=== PATIENT | female | born 2005 | race Two or more races ===

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

== ENCOUNTER 2023-01-06 03:00 | Emergency (ER) | payer OTHER, SELFPAY ==
[2023-01-06 03:16] VITALS: BP 105/61; PULSE 66; RESP 16; TEMP 36.6; O2SAT 99; BMI 22.3
--- OUTSIDE RECORDS SUMMARY | 2023-01-06 05:01 | XMS_ITS | Continuity of Care Document ---
Author Name Unknown Organization [facility] Address [address] [place] [id number] Care Team Providers Care Padded Products Finisher Name Role Phone Not on Staff, PCP Primary Care Physician Unavail able Encounter [facility] Date(s): 07/31/22 - 07/31/[address] [id number]- Encounter Diagnosis Abdominal pain(Final) - 07/31/22 Discharge Disposition: A-D/C Home Attending Physician: Mehnaz Whyte MD Admitting Physician: Mehnaz Whyte MD Referring Physician: Not on Staff, Referring MD Allergies, Adverse Reactions, Alerts No Known Allergies Medications ibuprofen 400 mg oral tablet 400 mg, 1, tablet, By Mouth, Every 6 hours, PRN, for 30 days, not to exceed 3200 mg/day with food or milk, # 120 tablet, Refills 0, Tot. Refills 0, Acute 08/30/22 17:15:00 EDT, as needed for menstrual pain, 07/31/22 17:15:00 EDT, Route to Pharmacy [facility]... Start Date: 07/31/22 Stop Date: 08/30/22 Status: Ordered ibuprofen 600 mg oral tablet 600 mg, 1, tablet, By Mouth, Every 6 hours, PRN, # 90 tablet, Refills 0, Tot. Refills 0, Maintenance, as needed for menstrual pain, 07/31/22 16:55:00 EDT, Route to Pharmacy Electronically, [facility], Partial fill upon patient request if... Start Date: 07/31/22 Status: Ordered Midol Maximum Strength Menstrual 500 mg-60 mg-15 mg oral tablet 1 tablet, By Mouth, Every 6 hours, PRN for menstrual pain, for 30 days, not to exceed 8 doses/day Use for monthly periods. Do not use with other products that contain tylenol or acetaminophen., # 120tablet, 0 Refills, Acute 08/30/22 17:15:00 EDT,... Start Date: 07/31/22 Stop Date: 08/30/22 Status: Ordered Vital Signs Most recent to oldest [Reference Range]: 1 2 3 Oxygen Saturation [94-100 %] 99 % (07/31/22 5:04 PM) 100 % (07/31/22 3:22 PM) 100 % (07/31/22 1:38 PM) Pulse Rate [55-90 bpm] 68 bpm (07/31/22 5:04 PM) 76 bpm (07/31/22 3:22 PM) 63 bpm (07/31/22 1:38 PM) Blood Pressure [90-138/55-84 mm Hg] 102/53mm Hg (07/31/22 5:57 PM) 93/45mm Hg (07/31/22 5:04 PM) 106/67mm Hg (07/31/22 3:22 PM) Respiratory Rate [16-30 br/min] 16 br/min (07/31/22 5:04 PM) 19 br/min (07/31/22 1:38 PM) 18 br/min (07/31/22 10:42 AM) Temperature [96.8-100.4 DegF] 97.6 DegF (07/31/22 5:04 PM) 97.7 DegF (07/31/22 3:22 PM) 97.9 DegF (07/31/22 8:01 AM) Mode of Delivery (Oxygen) Room air (07/31/22 5:04 PM) Room air (07/31/22 3:22 PM) Room air (07/31/22 1:38 PM) Blood pressure sites Arm, right (07/31/22 5:04 PM) Arm, right (07/31/22 3:22 PM) Arm, right (07/31/22 1:38 PM) Temperature Route Oral (07/31/22 5:04 PM) Oral (07/31/22 3:22 PM) Oral (07/31/22 8:01 AM) Note * Lavell Caicedo MD: PERFORM Event Display: Patient Education Leaflets Authored Date: [id number] Abdominal Pain, Unknown Cause (Adult) ?? [id number] ? (?) ? (?) ?. ?. ?. ?. ?. ?.?. ?. ?. ?. ?. ?. ?. ?. ?. ?. ?. ?. ?. ?. ?. ?. ?. ?. ?. ?. ?. ?. ?. ? . ?. ?. ?. ?. ?. ?. ?. ?. ?. ?. ? (?). ?. ?. ?. ?. ? 911 ? 911 ?: ?: ? 3 ? 100.4 ? (38 ?) ? (?) ? (?) ? (?) ?: ? Last Reviewed Date: 2021 ?? [id number] ? [employer] ?. ?. ?. ?? Patient Care team information Care Team Personnel Name: Not on Staff, PCP Position: [facility] Physician (General Medicine) Member Role: PCP Name: Laura Alex Position: [facility] ED TA EMY Name: Rowena Mora LPN Position: [facility] ED RN W/OE and Tasks Member Role: Patient Care Provider Name: Lavell Caicedo MD Position: [facility] Resident Member Role: ED Resident Address: Address: [address] [place] [address] Name: Mehnaz Whyte MD Position: [facility] Resident Member Role: Admitting Physician Address: Address: [address] [place] [address]
--- OUTSIDE RECORDS SUMMARY | 2023-01-06 05:01 | XMS_ITS | Continuity of Care Document ---
Author Name Unknown Organization [facility] ter Address [address] [place] [id number]- Care Team Providers Care Viscose Department Worker Name Role Phone Not on Staff, PCP Primary Care Physician Unavail able Encounter [facility] Date(s): 10/16/22 - 10/16/[address] [address]- Discharge Disposition: A-D/C Home Attending Physician: Piyush Saleh MD Admitting Physician: Piyush Saleh MD Referring Physician: Not on Staff, Referring MD Allergies, Adverse Reactions, Alerts No Known Allergies Medications ibuprofen 600 mg oral tablet 600 mg, 1, tablet, By Mouth, Every 6 hours, PRN, # 90 tablet, Refills 0, Tot. Refills 0, Maintenance, as needed for menstrual pain, 07/31/22 16:55:00 EDT, Route to Pharmacy Electronically, [facility] Report 3, Partial fill upon patient request if... Start Date: 07/31/22 Status: Ordered Results Radiology Reports * Exam Date Time Procedure Performing Provider Status 10/16/22 1:57 PM Chest 2 Views Frontal and Lat Grecia Sherman; Dea (Verified) Notes: (Chest 2 Views Frontal and Lat) Reason For Exam: Shortness of Breath RESULT: Chest 2 Views Frontal and Lat Chest 2 Views Frontal and Lat Hx of Present Illness: via stratus pt feeling dizzy and cohen x 2 days : color good gait steady; Reason: Shortness of Breath; Clinical Question(s): CHF COMPARISON: None FINDINGS: LINES AND TUBES: None. LUNGS AND PLEURA: The lungs are clear. No pleural effusion. No pneumothorax. HEART, MEDIASTINUM AND BEHZAD: Normal. BONES AND SOFT TISSUES: Normal. IMPRESSION: No definite acute cardiopulmonary disease is seen. WSN: [id number] Ordering Physician: Piyush Saleh Dictated By: Ingrid CLEVELAND, Lamin Palma Dictated Date/Time: 10/16/22 2:00 pm Reviewed By: Lamin Quintero MD, V Signed By: Lamin Quintero MD, V Signed Date/Time: 10/16/22 2:00 pm Transcribed By: ANNE MARIE Transcribed Date/Time: 10/16/22 2:00 pm Vital Signs Most recent to oldest [Reference Range]: 1 2 3 Oxygen Saturation [94-100 %] 100 % (10/16/22:23 PM) 100 % (10/16/22 4:05 PM) 97 % (10/16/22 12:33 PM) Pulse Rate [55-90 bpm] 68 bpm (10/16/22 5:23 PM) 67 bpm (10/16/22 4:05 PM) 72 bpm (10/16/22 12:33 PM) Blood Pressure [90-138/55-84 mm Hg] 112/70mm Hg (10/16/22 5:23 PM) 111/68mm Hg (10/16/22 4:05 PM) 94/55mm Hg (10/16/22 12:33 PM) Respiratory Rate [16-30 br/min] 18 br/min (10/16/22 5:23 PM) 18 br/min (10/16/22 4:05 PM) 16 br/min (10/16/22 12:33 PM) Temperature [96.8-100.4 DegF] 98.0 DegF (10/16/22 12:33 PM) Mode of Delivery (Oxygen) Room air (10/16/22 5:23 PM) Room air (10/16/22 4:05 PM) Room air (10/16/22 12:33 PM) Blood pressure sites Arm, right (10/16/22 5:23 PM) Arm, left (10/16/22 4:05 PM) Arm, left (10/16/22 12:33 PM) Temperature Route Oral (10/16/22 12:33 PM) EKG study * Event Display: ECG 12-Lead Authored Date: Please click on pdf link to open report * Event Display: ECG 12-Lead Authored Date: Ventricular Rate: 67 BPM Atrial Rate: 67 BPM P-R Interval: 128 ms QRS Duration: 74 ms Q-T Interval: 370 ms QTC Calculation(Bazett): 390 ms P [place]: 61 degrees R [place]: 79 degrees T [place]: 34 degrees Normal sinus rhythm Normal ECG No previous ECGs available Confirmed by RACHELLE PARK MD ([id number]) on 10/16/2022 7:13:08 PM [place]: RACHELLE PARK MD Note * Daria Javier NP: PERFORM Event Display: Patient Education Leaflets Authored Date: [id number] [facility] - If you need a Doctor or Clinic ?? 34 If You Need a Doctor or Clinic ?? Call [facility] PCP Assignment Line to help you find a doctor:?? [phone] ?? Clinics in [place], [place] For a full list of clinics:? [email or web address] ?? [facility]? [address] [phone] [facility] Internal medicine Clinic?[address]?[phone] [place] [address]?[address][phone] [facility]?[address][phone] [facility]?[address] [phone] [facility]?[address][phone] [facility]?[address][phone] [facility]?[address] [phone] [facility]? [address][phone] [facility] social director?[address][phone] [facility]?[address][phone] [facility]?[address][phone] [facility]?[address][phone] [facility]? [address][phone] [facility]?[address][phone] ? * Yaya FRANKS, Daria: PERFORM Event Display: Patient Education Leaflets Authored Date: [id number] Fainting, Uncertain Cause ?? [id number] ? (Fainting) ? (Syncope) ?. ?. ?. ? (Near-fainting) ?. ?: ? (? (Nausea)) ?. ?: ? (Arrhythmia) ? (Seizure) ? (Stroke) ?. ?. ?. ?. ?: ?. ?. ?24 ?. ?. ?. ?. ?. ?. ?. ?: ?: ?. ? (Seizure) ? (?) ?: ? Last Reviewed Date: 2018 ?? [id number] ? [facility] ?. ?. ?. ?? Patient Care team information Care Team Personnel Name: Not on Staff, PCP Position: [facility] Physician (General Medicine) Member Role: PCP Name: Daria Javier NP Position: [facility] Associate Professional Member Role: ED Physician Hoop Rolls Operator Address: Address: [address] [place] [address] Name: Piyush Saleh MD Position: [facility] ED Medicine MD Member Role: Admitting Physician Address: Address: [address] [place] [address] Name: Sheila Navas Position: [facility] ED RN W/OE and Tasks Member Role: Patient Care Provider
[2023-01-06 05:13] LABS: Basophils Percent Auto 0.5 % (0-2); Eosinophils Absolute Auto 0.1 X10*3/uL (0.0-0.4); Eosinophils Percent Auto 1.2 % (0-4); Hemoglobin 13.8 g/dl (12.0-16.0); Imm Gran Abs Auto 0.03 X10*3/uL (0.00-0.03); Imm Gran Pct Auto 0.4 % (0.0-0.4); Lymphocytes Absolute Auto 2.5 X10*3/uL (1.2-4.9); Lymphocytes Percent Auto 29.9 % (20-40); MANUAL DIFF FLAG NO; Mean Corpuscular HGB Conc 34.5 g/dl (31.0-35.0); Mean Corpuscular Hemoglobin 30.5 pg (27.0-33.0); Mean Corpuscular Volume 88.5 fL (80.0-98.0); Mean Platelet Volume 8.9 fL (9.4-12.3); Monocytes Absolute Auto 0.6 X10*3/uL (0.1-1.2); Monocytes Percent Auto 6.9 % (2-11); Neutrophils Absolute Auto 5.1 x10*3/uL (2.0-8.3); Neutrophils Percent Auto 61.1 % (45-73); Platelet Count 237 X10*3/uL (160-400); Red Blood Count 4.52 X10*6/uL (4.20-5.50); Red Cell Distribution Width 11.8 % (11.0-16.0); White Blood Count 8.4 X10*3/uL (4.8-10.8)
[2023-01-06 05:14] LABS: Appearance Urine Clear; Color Urine Yellow; Glucose Urine UA Negative (Negative); Leukocyte Esterase Urine Negative (Negative); Nitrite Urine Negative (Negative); Specific Gravity - Urine 1.015 (1.005-1.025); Urine Blood Negative (Negative); Urine Ketones Negative (Negative); Urine Protein Negative (Neg-Trace)
[2023-01-06 05:28] LABS: Alanine Aminotransferase 12 U/L (0-31); Albumin Level 4.5 g/dL (3.5-5.0); Alkaline Phosphatase 47 U/L (39-117); Anion Gap 15 (12-20); Aspartate Amino Transferase 18 U/L (5-31); Bilirubin Total 1.3 mg/dL (0.0-1.0); Blood Urea Nitrogen 13 mg/dL (9-16); Calcium 9.7 mg/dL (8.4-10.2); Carbon Dioxide 23 mmol/L (22-29); Chloride 107 mmol/L (96-108); Creatinine Clr Calc Pharmacy 97.2; Estimated Glomerular Filt Rate > 60; Glucose Random 92 mg/dL (60-115); Lipase 13 U/L (8-78); Potassium 3.7 mmol/L (3.3-5.1); Sodium 141 mmol/L (135-145); Total Protein 7.4 g/dL (6.5-8.0)
--- NOTE | 2023-01-06 06:59 | ED.ABDPAIN ---
HPI - Abdominal Pain General Chief Complaint: Abdominal Pain Stated Complaint: stomach pain Time Seen by Provider: 01/06/23 06:43 Source: patient and RN notes reviewed Mode of arrival: ambulatory Limitations: no limitations History of Present Illness HPI narrative: This is a 18-year-old female, with no known past medical history, presenting to the emergency department for evaluation of stomach pain since yesterday. Patient reports that she had diffuse abdominal pain since 02/13 yesterday afternoon. She states that the pain has been constant however wax and wanes in severity. She states that she had a bowel movement 2 hours and states that her stomach pain has since resolved. She denies any fevers, chills, nausea, vomiting, urinary symptoms, abnormal vaginal discharge or vaginal bleeding. She is not sexually active. No other complaints or concerns at this time. MD elicited complaint: abdominal pain Pertinent past history: constipation Related Data Previous Rx's Medication Instructions Recorded ibuprofen 400 mg tablet 400 mg PO TID PRN fever or pain 12/01/22 #30 tabs Allergies Allergy/AdvReac Type Severity Reaction Status Date / Time No Known Allergies Allergy Verified 11/04/22 03:47 Review of Systems Review of Systems Yes all other systems are reviewed and are negative Constitutional: Reports as per HPI [facility] Past Medical History Attestation statement: The following information was validated with the patient. Social History Social History Alcohol intake: never Smoked in Last 30 Days: No Use of substances other than those prescribed or required for medical reasons: No Advance Directives: No Advance Directives Information Provided: No Physical Exam ED Vital Signs: Vital Signs - 24 hr 01/06/23 03:16 Temperature 97.8 F Pulse Rate 66 Respiratory Rate 16 Blood Pressure 105/61 Pulse Oximetry 99 Oxygen Delivery Method Room Air BMI result Body Mass Index 22.3 Const General: cooperative, comfortable and no acute distress Orientation/consciousness: patient oriented x3 Limitations: no limitations HENMT Head: Yes normal to inspection, Yes normocephalic and Yes atraumatic Ears: hearing grossly normal bilaterally General nose exam: Normal external nose present Face and sinus: Yes normal facial exam Mouth: Normal oral and palatal mucosa present, oropharynx normal and moist mucous membranes Throat: Yes posterior oropharynx normal Eyes General: appearance normal, both eyes and all related structures Eyelids: Yes eyelids normal Conjunctivae: conjunctivae normal Sclerae: sclerae normal Pupils: Equal, round and reactive pupils present EOM: EOMs intact bilaterally Neck Neck: Yes normal visual inspection, Yes full ROM and Yes no lymphadenopathy Lymphatic: no lymphadenopathy noted Chest Chest palpation & inspection: normal inspection of the chest Resp Effort & Inspection: normal respiratory effort and able to speak in complete sentences Auscultation: clear to auscultation bilaterally, no crackles, no rales, no rhonchi and no wheezes Cardio Rate: regular rate Rhythm: regular rhythm Heart sounds: S1 normal heart sound present and S2 normal heart sound present GI Other: Abdomen is soft, nontender, nondistended. Normoactive bowel sounds present in all 4 quadrants. Inspection: Yes normal to inspection Skin General skin exam: no rashes or lesions noted Trauma: no lacerations or abrasions Wounds: no wounds Neuro General: patient oriented x3 and moves all extremities Cranial nerves: Yes Equal, round and reactive pupils present Extrem General: Yes normal to inspection Right upper extremity: normal to inspection Left upper extremity: normal to inspection Right lower extremity: normal to inspection Left lower extremity: normal to inspection Medical Decision Making Medical Decision Making [facility] Narrative: This is a 18-year-old female, with no known past medical history, presenting to the emergency department with complaints of abdominal pain since yesterday. Differential diagnoses include appendicitis, gastroenteritis, gastritis, bowel obstruction, constipation Upon physical examination, patient states that her symptoms have completely resolved after having a bowel movement emergency department and she is feeling much better. She has had no fevers, chills, nausea or vomiting. No urinary symptoms. No normal vaginal discharge or bleeding. Labs were obtained, no leukocytosis, stable H&H, chemistry within normal limits. Total bilirubin mildly elevated at 1.3 however has had mildly elevated bilirubin in the past. Abdomen is soft and not tender on examination. Symptoms likely due to constipation, discussed this with patient. Answered all questions. Patient stable for discharge, given return precautions. Differential Diagnosis Differential Diagnoses: The differential diagnosis associated with the presentation includes See above Lab Data [facility] Lab Attestation statement: I reviewed the patient's lab results. See above 01/06/23 05:07 01/06/23 05:07 Labs: Lab Results 01/06/23 Range/Units 05:07 WBC 8.4 (4.8-10.8) X10*3/uL RBC 4.52 (4.20-5.50) X10*6/uL Hgb 13.8 (12.0-16.0) g/dl Hct 40.0 (37.0-47.0) % MCV 88.5 (80.0-98.0) fL MCH 30.5 (27.0-33.0) pg MCHC 34.5 (31.0-35.0) g/dl RDW 11.8 (11.0-16.0) % Plt Count 237 (160-400) X10*3/uL MPV 8.9 L (9.4-12.3) fL Immature Gran % (Auto) 0.4 (0.0-0.4) % Neut % (Auto) 61.1 (45-73) % Lymph % (Auto) 29.9 (20-40) % Garrett % (Auto) 6.9 (2-11) % Eos % (Auto) 1.2 (0-4) % Baso % (Auto) 0.5 (0-2) % Lymph # (Auto) 2.5 (1.2-4.9) X10*3/uL Garrett # (Auto) 0.6 (0.1-1.2) X10*3/uL Eos # (Auto) 0.1 (0.0-0.4) X10*3/uL Baso # (Auto) 0.0 (0.0-0.2) X10*3/uL Abs Immat Gran (auto) 0.03 (0.00-0.03) X10*3/uL Absolute Neuts (auto) 5.1 (2.0-8.3) x10*3/uL Absolute Nucleated RBC 0.000 (0.0-0.012) X10*3/uL Nucleated RBC % (auto) 0.0 (0.0-0.2) /100WBC Sodium 141 (135-145) mmol/L Potassium 3.7 (3.3-5.1) mmol/L Chloride 107 (96-108) mmol/L Carbon Dioxide 23 (22-29) mmol/L Anion Gap 15 (12-20) BUN 13 (9-16) mg/dL Creatinine 0.73 (0.5-1.4) mg/dL Estim Creat Clear Calc 97.2 Estimated GFR > 60 Random Glucose 92 (60-115) mg/dL Calcium 9.7 (8.4-10.2) mg/dL Total Bilirubin 1.3 H (0.0-1.0) mg/dL AST 18 (5-31) U/L ALT 12 (0-31) U/L Alkaline Phosphatase 47 (39-117) U/L Total Protein 7.4 (6.5-8.0) g/dL Albumin 4.5 (3.5-5.0) g/dL Lipase 13 (8-78) U/L Urine Color Yellow Urine Appearance Clear Urine pH 6.0 (5.0-9.0) Ur Specific [place] 1.015 (1.005-1.025) Urine Protein Negative (Neg-Trace) mg/dL Urine Glucose (UA) Negative (Negative) mg/dL Urine Ketones Negative (Negative) mg/dL Urine Blood Negative (Negative) Urine Nitrite Negative (Negative) Ur Leukocyte Esterase Negative (Negative) Discharge Plan Discharge Clinical Impression: Abdominal pain Qualifiers: Abdominal location: generalized Qualified Code(s): R10.84 - Generalized abdominal pain Patient Disposition: Home, Self-Care Instructions: Abdominal Pain (ED) Additional Instructions: You presented to the emergency department today for abdominal pain which resolved after having a bowel movement. It is common to get abdominal pain prior to having a bowel movement or if your constipated and this is likely what had happened. Your labs and urine sample testing were reassuring. Please rest, drink plenty of fluids and get plenty of rest. If any new or worsening symptoms occur including but not limited to fevers, vomiting, or worsening abdominal pain rule please return for re-evaluation. Follow-up with your primary care physician. Prescriptions: No Action ibuprofen 400 mg tablet 400 mg PO TID PRN (Reason: fever or pain) Qty: 30 0RF Stand Alone Forms: Work/School Release
== END 2023-01-06 08:01 | disposition home or self-care (01) ==
PROVIDERS: Emergency Provider Emergency Medicine
DX: R10.84 Generalized abdominal pain (principal); K59.00 Constipation, unspecified; Z79.899 Other long term (current) drug therapy
CPT/HCPCS: 36415; 80053; 81003; 83690; 85025; 99283; 99284

== ENCOUNTER 2023-03-09 03:27 | Emergency (ER) | payer SELFPAY ==
--- NOTE | 2023-03-09 03:29 | ECG_ITS ---
Test Reason : Chest Pain Blood Pressure : / mmHG Vent. Rate : 057 BPM Atrial Rate : 057 BPM P-R Int : 142 ms QRS Dur : 076 ms QT Int : 380 ms P-R-T Axes : 052 064 036 degrees QTc Int : 369 ms Sinus bradycardia Otherwise normal ECG When compared with ECG of 01-DEC-2022 00:23, No significant change was found Referred By: Mitch Adames Electronically Signed By:TARAH WRIGHT MD
--- NOTE | 2023-03-09 03:36 | ED.CHESTPAIN ---
HPI - Chest Pain General Chief Complaint: Chest Pain Stated Complaint: chest pain Time Seen by Provider: 03/09/23 03:36 Source: patient Mode of arrival: EMS Limitations: no limitations History of Present Illness HPI narrative: Patient history of anxiety was watching TV had a conflict with her mother started having palpitation with sharp pain started just prior to arrival patient has been here multiple times for similar situations no known family cardiac history no shortness of breath no history of sudden cardiac Related Data Previous Rx's Medication Instructions Recorded ibuprofen 400 mg tablet 400 mg PO TID PRN fever or pain 12/01/22 #30 tabs hydroxyzine HCl 25 mg tablet 25 mg PO BID PRN anxiety #30 tabs 03/09/23 Allergies Allergy/AdvReac Type Severity Reaction Status Date / Time No Known Allergies Allergy Verified 03/09/23 03:51 Review of Systems Review of Systems: Yes all other systems are reviewed and are negative [facility] Social History Social History Alcohol intake: never Advance Directives: No Advance Directives Information Provided: No Physical Exam Vital Signs: Vital Signs: Last Vital Signs Temp 98.1 F 03/09/23 04:04 Pulse 56 03/09/23 04:04 Resp 14 03/09/23 04:04 BP 92/53 L 03/09/23 04:04 Pulse Ox 99 03/09/23 04:04 O2 Del Method Room Air 03/09/23 04:04 BMI result Body Mass Index 17.7 Appearance: Alert. Oriented X3. No acute distress. Anxious ENT: Pharynx normal. Oral Mucosa moist Neck: Normal inspection. Neck supple. CVS: Normal heart rate and rhythm. Pulses normal. No murmur rub or gallop Respiratory: No respiratory distress. Equal air entry bilateral, Abdomen: Soft and nontender. Bowel sounds are present, no mass palpable, no CVA tenderness Skin: Skin warm and dry. Normal skin color. Normal skin turgor. Extremities: No lower extremity edema. No calf tenderness Neuro: Oriented X 3. Medications Administered Discontinued Medications Generic Name Dose Route Start Last Admin Trade Name Freq PRN Reason Stop Dose Admin Hydroxyzine HCl 25 mg 03/09/23 03:44 03/09/23 04:05 Hydroxyzine Hcl 25 Mg Tablet PO 03/09/23 03:45 25 mg ONCE ONE Administration Medical Decision Making Medical Decision Making [facility] Narrative: Patient with frequent anxiety panic attacks atypical chest pains without any ischemic changes discharge patient home on Atarax advised to follow with PCP Independent Interpretation I performed an independent interpretation of an: EKG Interpretation: Sinus bradycardia, heart rate 55 beats per minute no acute ST T wave changes no acute ischemia Discharge Plan Discharge Clinical Impression: Atypical chest pain, Anxiety Patient Disposition: Home, Self-Care Instructions: Noncardiac Chest Pain (ED), Anxiety (ED) Additional Instructions: Rest at home chest pain is from anxiety take medication for anxiety as prescribed Prescriptions: New hydroxyzine HCl 25 mg tablet 25 mg PO BID PRN (Reason: anxiety) Qty: 30 0RF No Action ibuprofen 400 mg tablet 400 mg PO TID PRN (Reason: fever or pain) Qty: 30 0RF
[2023-03-09 03:52] VITALS: BP 112/70; PULSE 98; O2SAT 98; BMI 17.7
[2023-03-09 04:04] VITALS: BP 92/53; PULSE 56; RESP 14; TEMP 36.7; O2SAT 99
[2023-03-09] MEDS: hydrOXYzine HCL 25 MG TABLET PO (04:05)
[2023-03-09 05:22] VITALS: BP 93/39; PULSE 57; RESP 12; TEMP 37; O2SAT 99
== END 2023-03-09 05:40 | disposition home or self-care (01) ==
PROVIDERS: Emergency Provider Internal Medicine
DX: R07.89 Other chest pain (principal); F41.9 Anxiety disorder, unspecified
CPT/HCPCS: 93005; 99283; 99285

== ENCOUNTER → 2023-03-09 03:29 | Outpatient (BNV) | payer SELFPAY | PROVIDERS: Emergency Provider Internal Medicine; Visit Provider Internal Medicine Cardiovascular Disease | DX: R00.1 Bradycardia, unspecified (principal) | CPT/HCPCS: 93010 ==

== ENCOUNTER 2023-03-24 00:20 | Emergency (ER) | payer SELFPAY ==
[2023-03-24 00:36] VITALS: BP 97/54; PULSE 63; RESP 20; TEMP 36.4; O2SAT 100; BMI 20.3
--- NOTE | 2023-03-24 02:05 | ED.ABDPAIN ---
HPI - Abdominal Pain General Chief Complaint: Abdominal Pain Stated Complaint: abd pain Time Seen by Provider: 03/24/23 00:51 History of Present Illness HPI narrative: patient is a 18-year-old female presents today with having abdominal pain diffuse over entire abdomen. It may also go down the legs. Patient denies any nausea vomiting diarrhea. Stated the pain sometimes gets worse with her menstrual period and she is having her menstrual period right now. Patient is from home. Sometimes is worse at night. It is worse when she wakes up in the morning. Patient denies any vaginal discharge that is different. Denies any change in bowel movement. There is no chest pain is no shortness of breath there is no diaphoresis. Patient is from home. There is no change in diet. Pain started at 19:00. patient on no medication no known allergies. Related Data Previous Rx's Medication Instructions Recorded ibuprofen 400 mg tablet 400 mg PO TID PRN fever or pain 12/01/22 #30 tabs hydroxyzine HCl 25 mg tablet 25 mg PO BID PRN anxiety #30 tabs 03/09/23 famotidine 20 mg tablet (Pepcid) 20 mg PO BID 5 days #10 tabs 03/24/23 Allergies Allergy/AdvReac Type Severity Reaction Status Date / Time No Known Allergies Allergy Verified 03/24/23 00:35 Review of Systems Review of Systems Positive abdominal pain Yes all other systems are reviewed and are negative PMFSH Past Medical History Attestation statement: The following information was validated with the patient. Onset Date is defined in the Problem List Problems that require an onset date and time if occurred within 24 hrs of arrival to the ED Aortic Dissection and Rupture; Neurologic impairment; Cardiopulmonary Arrest; Endotracheal Intubation; Insertion or Replacement of Mechanical Circulatory Assist Device Social History Social History Alcohol intake: never Smoked in Last 30 Days: No Use of substances other than those prescribed or required for medical reasons: No Advance Directives: No Advance Directives Information Provided: Yes Patient : No Physical Exam ED Vital Signs: Vital Signs - 24 hr 03/24/23 00:36 Temperature 97.5 F Pulse Rate 63 Respiratory Rate 20 Blood Pressure 97/54 L Pulse Oximetry 100 Oxygen Delivery Method Room Air BMI result Body Mass Index 20.3 Appearance: Alert. Oriented X3. No acute distress. Eyes: Pupils equal, round and reactive to light. ENT: Pharynx normal. Neck: Normal inspection. Neck supple. No lymph nodes noted. No crepitus CVS: Normal heart rate and rhythm. Pulses normal. Normal S1 and S2 Respiratory: No respiratory distress. Breath sounds normal. No Wheezing. No rales Abdomen: Soft and nontender. No rigidity. No distention. good BS x4 Skin: Skin warm and dry. Normal skin color. Normal skin turgor. Extremities: No lower extremity edema. Neurovascular intact to all extremities. No Lacerations. No Rash Neuro: Oriented X 3. No motor deficit. No sensory deficit. Moving all extermities. No slurred speech Medical Decision Making Medical Decision Making [facility] Narrative: patient presents today with having abdominal pain. The pain is mostly epigastric in nature. test was negative. No evidence for related issues. LFTs are normal. No evidence for liver biliary issues. CT scan of the abdomen done. No appendicitis. No obstruction or abscess no perforation. Patient well-appearing. Will discharge home. Differential Diagnosis Differential Diagnoses: The differential diagnosis associated with the presentation includes related issue, UTI, biliary issues, reflux, obstruction, abscess, perforation Lab Data [facility] Lab Attestation statement: I reviewed the patient's lab results. 03/24/23 02:26 03/24/23 02:26 Labs: Lab Results 03/24/23 Range/Units 02:26 WBC 12.2 H (4.8-10.8) X10*3/uL RBC 4.25 (4.20-5.50) X10*6/uL Hgb 12.9 (12.0-16.0) g/dl Hct 37.7 (37.0-47.0) % MCV 88.7 (80.0-98.0) fL MCH 30.4 (27.0-33.0) pg MCHC 34.2 (31.0-35.0) g/dl RDW 12.1 (11.0-16.0) % Plt Count 219 (160-400) X10*3/uL MPV 9.4 (9.4-12.3) fL Immature Gran % (Auto) 0.2 (0.0-0.4) % Neut % (Auto) 87.9 H (45-73) % Lymph % (Auto) 8.3 L (20-40) % Rains % (Auto) 3.2 (2-11) % Eos % (Auto) 0.2 (0-4) % Baso % (Auto) 0.2 (0-2) % Lymph # (Auto) 1.0 L (1.2-4.9) X10*3/uL Rains # (Auto) 0.4 (0.1-1.2) X10*3/uL Eos # (Auto) 0.0 (0.0-0.4) X10*3/uL Baso # (Auto) 0.0 (0.0-0.2) X10*3/uL Abs Immat Gran (auto) 0.03 (0.00-0.03) X10*3/uL Absolute Neuts (auto) 10.7 H (2.0-8.3) x10*3/uL Absolute Nucleated RBC 0.000 (0.0-0.012) X10*3/uL Nucleated RBC % (auto) 0.0 (0.0-0.2) /100WBC Sodium 138 (135-145) mmol/L Potassium 3.7 (3.3-5.1) mmol/L Chloride 107 (96-108) mmol/L Carbon Dioxide 25 (22-29) mmol/L Anion Gap 10 L (12-20) BUN 17 H (9-16) mg/dL Creatinine 0.82 (0.5-1.4) mg/dL Estim Creat Clear Calc 89.8 Estimated GFR > 60 Random Glucose 115 (60-115) mg/dL Calcium 9.6 (8.4-10.2) mg/dL Total Bilirubin 0.9 (0.0-1.0) mg/dL Direct Bilirubin 0.3 (0.0-0.5) mg/dL AST 22 (5-31) U/L ALT 13 (0-31) U/L Alkaline Phosphatase 45 (39-117) U/L Total Protein 7.3 (6.5-8.0) g/dL Albumin 4.4 (3.5-5.0) g/dL Lipase 16 (8-78) U/L Urine Color Yellow Urine Appearance Clear Urine pH 5.5 (5.0-9.0) Ur Specific [place] >= 1.030 H (1.005-1.025) Urine Protein Trace (Neg-Trace) mg/dL Urine Glucose (UA) Negative (Negative) mg/dL Urine Ketones Trace (Negative) mg/dL Urine Blood Moderate (2+) H (Negative) Urine Nitrite Negative (Negative) Ur Leukocyte Esterase Negative (Negative) Urine RBC >20 H (0-2) /HPF Urine WBC 0-5 (0-5) /HPF Ur Squamous Epith Cells 0-2 (0-2) /HPF Urine Bacteria None Seen (None Seen) Hyaline Casts 0-2 (0-2) /LPF Urine Test NEGATIVE (NEGATIVE) Independent Interpretation I performed an independent interpretation of an: CT Scan ( no obvious obstruction abscess perforation) Radiology Impression Discussion of test interpretation with radiology: I have reviewed the radiologist's reading. Medications Administered Discontinued Medications Generic Name Dose Route Start Last Admin Trade Name Freq PRN Reason Stop Dose Admin Al Hydroxide/Mg Hydroxide 30 ml 03/24/23 02:02 03/24/23 02:43 Magnesium Hydrox/Alum Hydrox 30 Ml Oral.Susp PO 03/24/23 02:03 Not Given ONCE ONE Belladonna Alkaloids/Phenobarbital 10 ml 03/24/23 02:02 03/24/23 02:42 Phenobarb/Hyoscy/Atropine/Scop 10 Ml Elixir PO 03/24/23 02:03 Not Given ONCE ONE Sodium Chloride 1,000 mls @ 999 mls/hr 03/24/23 02:15 03/24/23 02:35 Ns IV 03/24/23 03:15 999 mls/hr .Q1H1M BOB Administration Iohexol 100 ml 03/24/23 03:31 03/24/23 03:32 Iohexol 350 Mg/Ml 100 Ml Infus..Btl IV 03/24/23 03:32 85 ml ONCE ONE Administration Ketorolac Tromethamine 15 mg 03/24/23 02:02 03/24/23 02:35 Ketorolac Tromethamine 30 Mg/Ml Vial IVPUSH 03/24/23 02:03 15 mg ONCE ONE Administration Lidocaine HCl 15 ml 03/24/23 02:02 03/24/23 02:43 Lidocaine Hcl Viscous 2 % 15 Ml Solution MUCOUS MEM 03/24/23 02:03 Not Given ONCE ONE Ondansetron HCl 4 mg 03/24/23 02:02 03/24/23 02:35 Ondansetron Hcl 4 Mg/2 Ml Vial IVPUSH 03/24/23 02:03 4 mg ONCE ONE Administration Discharge Plan Discharge Clinical Impression: Abdominal pain, Acid reflux Patient Disposition: Home, Self-Care Instructions: Abdominal Pain (ED) Prescriptions: New famotidine [Pepcid] 20 mg tablet 20 mg PO BID 5 Days Qty: 10 0RF No Action hydroxyzine HCl 25 mg tablet 25 mg PO BID PRN (Reason: anxiety) Qty: 30 0RF ibuprofen 400 mg tablet 400 mg PO TID PRN (Reason: fever or pain) Qty: 30 0RF Referrals: Physician,Unknown J [Primary Care Provider] - 03/26/23
[2023-03-24 02:31] LABS: Basophils Percent Auto 0.2 % (0-2); Eosinophils Percent Auto 0.2 % (0-4); Hematocrit 37.7 % (37.0-47.0); Hemoglobin 12.9 g/dl (12.0-16.0); Imm Gran Abs Auto 0.03 X10*3/uL (0.00-0.03); Imm Gran Pct Auto 0.2 % (0.0-0.4); Lymphocytes Percent Auto 8.3 % (20-40); MANUAL DIFF FLAG NO; Mean Corpuscular HGB Conc 34.2 g/dl (31.0-35.0); Mean Corpuscular Hemoglobin 30.4 pg (27.0-33.0); Mean Corpuscular Volume 88.7 fL (80.0-98.0); Mean Platelet Volume 9.4 fL (9.4-12.3); Monocytes Absolute Auto 0.4 X10*3/uL (0.1-1.2); Monocytes Percent Auto 3.2 % (2-11); Neutrophils Absolute Auto 10.7 x10*3/uL (2.0-8.3); Neutrophils Percent Auto 87.9 % (45-73); Platelet Count 219 X10*3/uL (160-400); Red Blood Count 4.25 X10*6/uL (4.20-5.50); Red Cell Distribution Width 12.1 % (11.0-16.0); White Blood Count 12.2 X10*3/uL (4.8-10.8)
[2023-03-24 02:33] LABS: Appearance Urine Clear; Color Urine Yellow; Glucose Urine UA Negative (Negative); Leukocyte Esterase Urine Negative (Negative); Nitrite Urine Negative (Negative); PH 5.5 (5.0-9.0); Specific Gravity - Urine >= 1.030 (1.005-1.025); UMIC TRIGGER UACC YES; Urine Blood Moderate (2+) (Negative); Urine Ketones Trace mg/dL (Negative); Urine Protein Trace mg/dL (Neg-Trace)
[2023-03-24 02:52] LABS: Bacteria Urine None Seen (None Seen); Hyaline Casts Urine 0-2 /LPF (0-2); RBC Urine >20 /HPF (0-2); Squamous Epithelial Cell Urine 0-2 /HPF (0-2); WBC Urine 0-5 /HPF (0-5)
--- NOTE | 2023-03-24 02:53 | PC.NURSE ---
Pt educated on the medication ordered by MD prior to administration and she was initially agreeable to receiving all medication. Once RN provided pt with the mixed up GI Cocktail she declined/refused and gave it back to this RN without taking. She is aware of plan for CT imaging and that the scan is pending results of blood work and UPreg due to the scan being with IV contrast. lights turned off, curtain closed and call bel in reach.
[2023-03-24 02:59] LABS: Alanine Aminotransferase 13 U/L (0-31); Albumin Level 4.4 g/dL (3.5-5.0); Alkaline Phosphatase 45 U/L (39-117); Anion Gap 10 (12-20); Aspartate Amino Transferase 22 U/L (5-31); Bilirubin Direct 0.3 mg/dL (0.0-0.5); Bilirubin Total 0.9 mg/dL (0.0-1.0); Blood Urea Nitrogen 17 mg/dL (9-16); Calcium 9.6 mg/dL (8.4-10.2); Carbon Dioxide 25 mmol/L (22-29); Chloride 107 mmol/L (96-108); Creatinine Clr Calc Pharmacy 89.8; Estimated Glomerular Filt Rate > 60; Glucose Random 115 mg/dL (60-115); Lipase 16 U/L (8-78); Potassium 3.7 mmol/L (3.3-5.1); Sodium 138 mmol/L (135-145); Total Protein 7.3 g/dL (6.5-8.0)
[2023-03-24 04:39] VITALS: BP 106/63; PULSE 56; RESP 16; O2SAT 98
== END 2023-03-24 04:48 | disposition home or self-care (01) ==
PROVIDERS: Emergency Provider Emergency Medicine Emergency Medical Services
DX: K21.9 Gastro-esophageal reflux disease without esophagitis (principal); R10.13 Epigastric pain; Z79.899 Other long term (current) drug therapy
CPT/HCPCS: 36415; 74177; 80048; 80076; 81001; 81025; 83690; 85025; 96374; 96375; 99284; 99285; J1885; J2405; Q9967